=== PATIENT | female | born 1985 | race Caucasian/White ===

== ENCOUNTER 2021-05-04 07:49 | Outpatient (RCR) | payer OTHER, SELFPAY ==
[2021-05-04 09:48] VITALS: BP 168/82; PULSE 80; RESP 24; TEMP 36.1; O2SAT 100
[2021-05-04] MEDS: FAMOTIDINE 20 MG TABLET PO (09:53)
[2021-05-04] MEDS: ACETAMINOPHEN 325 MG TABLET 650 MG PO (09:53)
[2021-05-04] MEDS: diphenhydrAMINE HCl CAP 25 MG CAPSULE PO (09:53)
[2021-05-04 11:45] VITALS: BP 128/76; PULSE 88; O2SAT 100
== END 2021-05-04 17:00 ==
LOC: AMCINF 07:49
PROVIDERS: PCP Registered Nurse; Visit Provider Internal Medicine Hematology & Oncology
DX: U07.1 COVID-19 (principal); I10 Essential (primary) hypertension; E11.9 Type 2 diabetes mellitus without complications
CPT/HCPCS: A9270; M0245; Q0245